=== PATIENT | male | born 1975 | race Native Hawaiian/Other Pacific Islander ===

== ENCOUNTER 2017-03-11 04:05 | Emergency (ER) | payer OTHER ==
[~2017-03-11] VITALS: Ht 180.3 cm; Wt 86.2 kg
[~2017-03-11 04:05] MED LIST: ALPR1TAB61 PO; FLUO20CA6 PO; LISI20TA11 PO; NEXIUM40 MG OR; RISP0.25 PO
[2017-03-11] MEDS ORDERED: TRINTELLIX10 MG PO (04:17)
[2017-03-11 04:43] LABS: PLATELET COUNT 284 K/uL (142-355)
[2017-03-11 04:54] LABS: POTASSIUM 3.9 mmol/L (3.6-5.2); SODIUM 136 mmol/L (136-145)
[2017-03-11 09:50] VITALS: BP 132/84; TEMP 98.2
== END 2017-03-11 09:50 | disposition home or self-care (01) ==
LOC: ED 04:05
DX: K52.89 Other specified noninfective gastroenteritis and colitis (principal)
CPT/HCPCS: 36415; 80053; 85027; 96361; 96374; 96375; 99284; J2405

== ENCOUNTER 2018-01-16 09:48 | Emergency (ER) | payer OTHER ==
[~2018-01-16] VITALS: Ht 180.3 cm; Wt 77.6 kg
[~2018-01-16 09:48] MED LIST changes: +TRINTELLIX10 MG PO
[2018-01-16 09:55] VITALS: TEMP 99
[2018-01-16 10:38] LABS: PLATELET COUNT 230 K/uL (142-355)
[2018-01-16 10:44] LABS: POTASSIUM 4.9 mmol/L (3.6-5.2)
[2018-01-16 12:55] VITALS: BP 163/89
== END 2018-01-16 13:00 | disposition short-term general hospital (02) ==
LOC: ED 09:48
DX: I21.9 Acute myocardial infarction, unspecified (principal)
CPT/HCPCS: 36415; 80053; 81000; 84484; 85027; 93005; 96374; 99284; J2270

== ENCOUNTER 2018-01-22 19:03 | Outpatient (CLI) | payer OTHER ==
[2018-01-22] MEDS ORDERED: NAPROXEN DR500 MG PO (19:36)
[2018-01-22] MEDS ORDERED: AMBIEN5 MG PO (19:37)
== END 2018-01-22 19:13 | disposition short-term general hospital (02) ==
LOC: AMB 19:03
DX: R07.89 Other chest pain (principal); F10.10 Alcohol abuse, uncomplicated
CPT/HCPCS: A0425; A0427

== ENCOUNTER 2018-01-22 19:19 | Observation (INO) | payer OTHER ==
[~2018-01-22] VITALS: Ht 180.3 cm; Wt 73.2 kg
[2018-01-22 19:20] VITALS: BP 118/60; TEMP 100.6
[2018-01-22] MEDS ORDERED: NAPROXEN DR500 MG PO (19:36)
[2018-01-22] MEDS ORDERED: AMBIEN5 MG PO (19:37)
[2018-01-22 19:59] LABS: PLATELET COUNT 240 K/uL (142-355)
[2018-01-22 20:17] LABS: POTASSIUM 3.4 mmol/L (3.6-5.2); SODIUM 139 mmol/L (136-145)
[2018-01-22 20:33] LABS: PARTIAL THROMBOPLASTIN TIME 28.7 SECONDS (24.5-33.6)
[2018-01-22 23:10] VITALS: BP 103/64; TEMP 97.8; Ht 180.3 cm; Wt 73.2 kg
--- NOTE | 2018-01-22 23:37 | NUR ---
2257 RECD TO ROOM VIA WC FROM ER, ORIENTED TO ROOM, PATIENT DIRTY & UNKEPT, STATES HE WAS IN YARD, STTRONG SMELL OF ALCOHOL ON PT, STATES HE HAD 6PK BEER ABOUT 6PM. REPEATEDLY ASK TO GO OUT & SMOKE & GET FRESH AIR. TELEMETRY APPLIED, SOUP & CRACKERS GIVEN PER PT REQUEST.
[2018-01-22 23:39] VITALS: BP 103/64; TEMP 97.8
[2018-01-23 05:21] VITALS: BP 98/60; TEMP 97.8
--- NOTE | 2018-01-23 05:24 | NUR ---
PTS ROOM & HALLWAY SMELLED OF CIGARETTE SMOKE ASKED PT IF HE WAS SMOKING IN ROOM STATES HE SMOKED LAST CIGARETTE IN BATHROOM. INFORMED PT THAT ALL ROOMS ARE EQUIPED WITH OXYGEN & HE COULD CATCH ROOM & SELF ON FIRE, ABSOLUTELY NO SMOKING ALLOWED IN FACILITY, VERBALIZED UNDERSTANDING & STATES HE FORGOT.
[2018-01-23 07:24] VITALS: BP 115/71; TEMP 98.2
--- NOTE | 2018-01-23 08:24 | NUR ---
PATIENT ADMITTED WITH CHEST PAIN AND SOB AND NO DIET ORDER PRESENTLY. IBW 172+/-10% AND IS 94% IBW, BMI AT 22.59 WNL'S AND KCAL NEEDS [id number], PROTEIN NEEDS 78 TO 88 GRAMS AND FLUIDS [id number] ML PER DAY. ADVANCE DEVAN AND GOAL TO INTAKE 75% OR MORE OF MEALS.
[2018-01-23 11:53] VITALS: BP 122/77; TEMP 98.8
--- NOTE | 2018-01-23 14:05 | NUR ---
PT DC WITH EDUCATION GIVEN. PT VERBALIZED UNDERSTANDING. IV DC WITH CANNULA TIP INTACT. NAD NOTED. PT AMBULATED OUT PER REQUEST.
== END 2018-01-23 14:25 | disposition home or self-care (01) ==
LOC: ED 19:19 → MED/SURG 20:37
DX: R06.02 Shortness of breath (principal); T67.5XXA Heat exhaustion, unspecified, initial encounter; R07.89 Other chest pain
CPT/HCPCS: 80053; 82550; 84484; 85027; 85610; 85730; 93005; 94760; 96374; 99220; 99284; G0378; J1650; J2060

== ENCOUNTER 2021-05-19 07:57 | Outpatient (CLI) | payer OTHER ==
[~2021-05-19 07:57] MED LIST changes: +AMBIEN5 MG PO; +NAPROXEN DR500 MG PO
[2021-05-19 08:23] LABS: PLATELET COUNT 285 K/uL (142-355)
[2021-05-19 08:38] LABS: POTASSIUM 4.4 mmol/L (3.6-5.2)
== END 2021-05-19 21:17 | disposition home or self-care (01) ==
LOC: LABW 07:57
PROVIDERS: ATTEND Nurse Practitioner Family
DX: F32.A Depression, unspecified (principal); I10 Essential (primary) hypertension; Z79.899 Other long term (current) drug therapy
CPT/HCPCS: 36415; 80053; 80061; 84402; 84403; 85027

== ENCOUNTER 2022-02-11 10:04 | Outpatient (CLI) | payer OTHER | END 2022-02-11 22:24 | disposition home or self-care (01) | LOC: LABW 10:04 | PROVIDERS: ATTEND Nurse Practitioner Family | DX: E29.1 Testicular hypofunction (principal) | CPT/HCPCS: 36415; 84402; 84403 ==

== ENCOUNTER 2022-12-05 15:31 | Emergency (ER) | payer OTHER ==
[~2022-12-05] VITALS: Ht 180.3 cm; Wt 89.8 kg
[2022-12-05 16:30] VITALS: BP 136/85; TEMP 97.3
== END 2022-12-05 16:30 | disposition home or self-care (01) ==
LOC: ED 15:31
DX: L72.3 Sebaceous cyst (principal); F17.210 Nicotine dependence, cigarettes, uncomplicated
CPT/HCPCS: 99281